=== PATIENT | female | born 1960 | race African-American/Black ===

== ENCOUNTER 2017-11-23 11:43 | Emergency (ER) | payer MEDICARE, OTHER ==
[~2017-11-23] VITALS: Ht 170.2 cm; Wt 89.4 kg
--- NOTE | 2017-11-23 12:10 | PHYS DOC ---
Past History Past Medical History: Asthma, CAD, Diabetes, Hypertension Smoking: Non-smoker Adult General Chief Complaint Chief Complaint: MECHANICAL FALL HPI HPI 57 year old female patient states she was getting out of her car and fell on ice on the driveway of her home and landed on her left site without head injury or loss of consciousness. Patient states she was not able to get up and one of the neighbor called 911 and they helped her to get up and she was able to walk but complaining of pain in left elbow and thoracic and lumbar spine and rated her pain 7/10 in elbow and 8/10 in her back a constant pain that getting force with movement. Patient denies focal neuro deficit, nausea and vomiting, headache. Patient is up-to-date with tetanus immunization. Review of Systems Review of Systems Constitutional: Denies fever or chills [] Eyes: Denies change in visual acuity, redness, or eye pain [] HENT: Denies nasal congestion or sore throat [] Respiratory: Denies cough or shortness of breath [] Cardiovascular: No additional information not addressed in HPI [] GI: Denies abdominal pain, nausea, vomiting, bloody stools or diarrhea [] : Denies dysuria or hematuria [] Musculoskeletal: Reports back pain and joint pain Integument: Denies rash or skin lesions [] Neurologic: Denies headache, focal weakness or sensory changes [] Endocrine: Denies polyuria or polydipsia [] All other systems were reviewed and found to be within normal limits, except as documented in this note. Current Medications Current Medications Current Medications Medications (Trade) Dose Ordered Sig/Xu Start Time Stop Time Status Last Admin Dose Admin Acetaminophen/ Hydrocodone Bitart (Lortab 5/325) 1 tab 1X ONCE 11/23/17 12:15 11/23/17 12:16 UNV Allergies Allergies Allergies Coded Allergies Type Severity Reaction Last Updated Verified Sulfa (Sulfonamide Antibiotics) Allergy Unknown 11/23/17 Yes nitrofurantoin Allergy Unknown 11/23/17 Yes sulfamethoxazole Allergy Unknown 11/23/17 Yes trimethoprim Allergy Unknown 11/23/17 Yes Physical Exam Physical Exam Constitutional: Well developed, well nourished, mild distress, non-toxic appearance. [] HENT: Normocephalic, atraumatic, bilateral external ears normal, oropharynx moist, no oral exudates, nose normal. [] Eyes: PERRLA, EOMI, conjunctiva normal, no discharge. [] Neck: Normal range of motion, no tenderness, supple, no stridor. [] Cardiovascular:Heart rate regular rhythm, no murmur [] Lungs & Thorax: Bilateral breath sounds clear to auscultation [] Abdomen: Bowel sounds normal, soft, no tenderness, no masses, no pulsatile masses. [] Skin: Warm, dry, no erythema, no rash. [] Back: No deformity or midline tenderness, limited range of motion of thoracic and lumbar spine because of pain Extremities: No deformity of left elbow and forearm, mild tenderness in proximal posterior side of left forearm, no neurovascular deficit Neurologic: Alert and oriented X 3, normal motor function, normal sensory function, no focal deficits noted. [] Psychologic: Affect normal, judgement normal, mood normal. [] EKG EKG [] Radiology/Procedures Radiology/Procedures [] [place] [address] IMAGING REPORT Signed PATIENT: ROWAN MONTOYA ACCOUNT: [id number] : 1960 LOCATION: ER AGE: 57 SEX: F EXAM [id number]; [id number] STATUS: REG ER ORD. PHYSICIAN: KARINA KEITA MD REASON: fall PROCEDURE: ELBOW LEFT 3V; LUMBAR SPINE 2-3V; THORACIC SPINE 3V Portable left elbow, 3 views, 11/23/2017: History: Fall, left elbow pain No fracture or dislocation is identified. There is no radiographic evidence of an elbow joint effusion. IMPRESSION: No significant left elbow abnormality is detected.. Thoracic spine, 3 views, 11/23/2017: History: Fall, back pain The thoracic vertebral heights are well-maintained. There is mild scattered marginal spurs. There is a slight left convexity upper thoracic scoliosis. No fracture or dislocation is identified. A surgical plate and screws is evident in the lower cervical spine. IMPRESSION: 1. Mild degenerative change. 2. No acute bony abnormality is detected. Portable lumbar spine, 3 views, 11/23/2017: History: Fall, back pain The lumbar vertebral heights and disc spaces are well-maintained. There are mild scattered marginal spurs. There are moderate degenerative changes involving scattered facet joints bilaterally. No fracture is identified. There is a slight anterolisthesis at L4-5 apparently due to facet joint arthropathy. Minimal aortic calcific plaquing is noted. IMPRESSION: 1. Mild to moderate scattered degenerative changes. 2. Slight anterolisthesis at L4-5 due to facet joint arthropathy. 3. No acute bony abnormality is detected. Course & Med Decision Making Course & Med Decision Making Pertinent Imaging studies reviewed. (See chart for details) Evaluation of patient in ER showed 57-year-old female patient with a fall and injury to left elbow and back. Patient had unremarkable physical exam except for mild limited range of motion because of pain. X-ray of left elbow and thoracic and lumbar spine was unremarkable. Patient treated with [place] and felt better. Plan discharge patient home with diagnosis of mechanical fall and injury to elbow. Patient completed without problem. I've spoken with the patient and/or caregivers. I've explained the patient's condition, diagnosis and treatment plan based on information available to me at this time. I've answered the patient's and/or caregivers questions and addressed any concerns. The patient and/or caregivers have a good understanding the patient's diagnosis, condition and treatment plan as can be expected at this point. Vital signs have been stabilized. The patient's condition is stable for discharge from the emergency department. The patient will pursue further outpatient evaluation with her primary care provider or other designated consulting physician as outlined in the discharge instructions. Patient and/or caregivers are agreeable to this plan of care and follow-up instructions have been explained in detail. The patient and/or caregivers have received these instructions in written format and expressed understanding of these discharge instructions. The patient and her caregivers are aware that if any significant change in condition or worsening of symptoms should prompt him to immediately return to this of the closest emergency department. If an emergent department is not readily available I would encourage him to call 911. [] Dragon Disclaimer Dragon Disclaimer This electronic medical record was generated, in whole or in part, using a voice recognition dictation system. Departure Departure: Impression: Primary Impression: Injury of left elbow Additional Impressions: Thoracic myofascial strain Lumbar strain Fall from slipping on ice Disposition: HOME, SELF-CARE (At 1308) Condition: IMPROVED Referrals: FATUMA PIERCE MD (PCP) Patient Instructions: Contusion, Lumbosacral Strain, Thoracic Strain Additional Instructions: Apply ice on the affected area Follow-up with your primary care physician in 3-5 days Return to ER if not getting better Scripts Hydrocodone Bit/Acetaminophen (NORCO 5-325 TABLET) 1 Each Tablet 1 TAB PO PRN Q6HRS Y for PAIN, #14 TAB 0 Refills Prov: KARINA KEITA MD 11/23/17 Problem Qualifiers KARINA KEITA MD Nov 23, 2017 12:10
[2017-11-23] MEDS ORDERED: HYDROcodone/APAP 5/325MG 1 TAB TABLET PO ONE (12:30)
--- NOTE | 2017-11-23 12:44 | RAD ---
Portable left elbow, 3 views, 11/23/2017: History: Fall, left elbow pain No fracture or dislocation is identified. There is no radiographic evidence of an elbow joint effusion. IMPRESSION: No significant left elbow abnormality is detected.. Thoracic spine, 3 views, 11/23/2017: History: Fall, back pain The thoracic vertebral heights are well-maintained. There is mild scattered marginal spurs. There is a slight left convexity upper thoracic scoliosis. No fracture or dislocation is identified. A surgical plate and screws is evident in the lower cervical spine. IMPRESSION: 1. Mild degenerative change. 2. No acute bony abnormality is detected. Portable lumbar spine, 3 views, 11/23/2017: History: Fall, back pain The lumbar vertebral heights and disc spaces are well-maintained. There are mild scattered marginal spurs. There are moderate degenerative changes involving scattered facet joints bilaterally. No fracture is identified. There is a slight anterolisthesis at L4-5 apparently due to facet joint arthropathy. Minimal aortic calcific plaquing is noted. IMPRESSION: 1. Mild to moderate scattered degenerative changes. 2. Slight anterolisthesis at L4-5 due to facet joint arthropathy. 3. No acute bony abnormality is detected.
[2017-11-23] MEDS ORDERED: HYDR-971 PO (13:09)
[2017-11-23 13:18] VITALS: BP 140/67
== END 2017-11-23 13:19 | disposition home or self-care (01) ==
LOC: ER 11:43
DX: S59.902A Unspecified injury of left elbow, initial encounter (principal); S29.012A Strain of muscle and tendon of back wall of thorax, initial encounter; S39.012A Strain of muscle, fascia and tendon of lower back, initial encounter; E11.9 Type 2 diabetes mellitus without complications; I10 Essential (primary) hypertension; I25.10 Atherosclerotic heart disease of native coronary artery without angina pectoris; J45.909 Unspecified asthma, uncomplicated; Z88.2 Allergy status to sulfonamides; Z88.1 Allergy status to other antibiotic agents; Z88.8 Allergy status to other drugs, medicaments and biological substances; W00.0XXA Fall on same level due to ice and snow, initial encounter; Y93.89 Activity, other specified; Y92.89 Other specified places as the place of occurrence of the external cause; Y99.8 Other external cause status
CPT/HCPCS: 72072; 72100; 73080; 99284

== ENCOUNTER → 2017-12-06 | Day surgery (SDC) | payer MEDICARE, OTHER ==
[2017-11-23 13:18] VITALS: BP 140/67
[~2017-12-06] MED LIST: ALBU8.5H8 INH; ALLO300T PO; BUPIVACAINE MPF 0.5% 30 ML VIAL. ONE; CRESTOR40 MG PO; GABA600T2 PO; GLIP10TA13 PO; HYDR-971 PO; INSU100C4 SQ; INSU100I13 SQ; IV RINGERS SOLUTION,LACTATED 1,000 ML IV SCH; LIDOCAINE 1% PF 30 ML VIAL. ONE; LORA10TA3 PO; LOSA100T6 PO; MIDAZOLAM HCL PF 2 MG/2 ML VIAL. ONE; RANI150T6 PO; TRIA1CAP3 PO
== END | disposition home or self-care (01) ==
LOC: SURG 08:07
PROVIDERS: ATTEND Anesthesiology Pain Medicine
DX: M47.816 Spondylosis without myelopathy or radiculopathy, lumbar region (principal); I10 Essential (primary) hypertension; E11.9 Type 2 diabetes mellitus without complications; J45.909 Unspecified asthma, uncomplicated; G47.33 Obstructive sleep apnea (adult) (pediatric); Z79.899 Other long term (current) drug therapy; Z98.890 Other specified postprocedural states; Z88.2 Allergy status to sulfonamides; Z88.8 Allergy status to other drugs, medicaments and biological substances; Z79.4 Long term (current) use of insulin
CPT/HCPCS: 64493; 64494; 82947; J2001; J2250; J3010; J3490; J7120; 99152

== ENCOUNTER 2018-01-03 07:33 | Inpatient (IN) | payer MEDICARE, OTHER ==
[~2018-01-03] VITALS: Ht 170.2 cm; Wt 93.0 kg
[~2018-01-03 07:33] MED LIST changes: -BUPIVACAINE MPF 0.5% 30 ML VIAL. ONE; -IV RINGERS SOLUTION,LACTATED 1,000 ML IV SCH; -LIDOCAINE 1% PF 30 ML VIAL. ONE; -MIDAZOLAM HCL PF 2 MG/2 ML VIAL. ONE
[2018-01-03] MEDS ORDERED: IPRATRPIUM/ALBUTEROL 0.5/2.5MG 3 ML NEBU. ONE (07:45)
[2018-01-03] MEDS ORDERED: MAGNESIUM SULFATE 1GM 100 ML IV ONE (08:00)
[2018-01-03] MEDS ORDERED: IV NORMAL SALINE 1,000ML 1,000 ML IV SCH ×2 (08:00→10:06)
--- NOTE | 2018-01-03 08:22 | EKG ---
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
[2018-01-03 08:26] LABS: BASO % 1 % (0-3); EOS # 0.4 x10^3/uL (0.0-0.7); EOS % 6 % (0-3); HEMATOCRIT 37.5 % (36.0-47.0); HEMOGLOBIN 12.3 g/dL (12.0-15.5); LYMPH # 2.1 x10^3/uL (1.0-4.8); LYMPH % 36 % (24-48); MEAN CORPUSCULAR HEMOGLOBIN 31 pg (25-35); MEAN CORPUSCULAR HGB CONC 33 g/dL (31-37); MEAN CORPUSCULAR VOLUME 94 fL (79-100); MONO # 0.7 x10^3/uL (0.0-1.1); MONO % 11 % (0-9); NEUT # 2.7 x10^3uL (1.8-7.7); NEUT % 46 % (31-73); PLATELET COUNT 239 x10^3/uL (140-400); RED BLOOD COUNT 4.01 x10^6/uL (3.50-5.40); RED CELL DISTRIBUTION WIDTH 15.1 % (11.5-14.5); WHITE BLOOD COUNT 5.8 x10^3/uL (4.0-11.0)
[2018-01-03] MEDS ORDERED: ALBUTEROL SULFATE 2.5 MG/3 ML NEBU. NEB ONE (08:30)
[2018-01-03] MEDS ORDERED: methylPREDNISolone SOD SUCC PF 125 MG/2 ML VIAL. IV ONE (08:30)
--- NOTE | 2018-01-03 08:34 | PHYS DOC ---
Past History Past Medical History: Asthma, CAD, Diabetes, Hypertension Past Surgical History: Other Smoking: Non-smoker Alcohol Use: None Drug Use: None Adult General Chief Complaint Chief Complaint: SHORTNESS OF BREATH HPI HPI Patient is a 57 year old female who presents with complaint shortness of breath. The patient states her symptoms started approximately 4-5 days ago. The patient states that she has been having coughing and wheezing. The patient went to see her primary care provider and was treated with amoxicillin, Tessalon Perles, and cough medication. Patient states that she does have history of chronic asthma. Patient denies any associated fevers. Patient states despite taking the medications her condition has been worsening over the past 1-2 days. Patient states she is very short of breath with minimal exertion and has been having quite a bit of wheezing. Patient denies chest pain, vomiting, or diarrhea. Review of Systems Review of Systems Constitutional: Denies fever or chills [] Eyes: Denies change in visual acuity, redness, or eye pain [] HENT: Denies nasal congestion or sore throat [] Respiratory: Cough, wheezing, shortness of breath[] Cardiovascular: Denies chest pain or edema[] GI: Denies abdominal pain, nausea, vomiting, bloody stools or diarrhea [] : Denies dysuria or hematuria [] Musculoskeletal: Denies back pain or joint pain [] Integument: Denies rash or skin lesions [] Neurologic: Denies headache, focal weakness or sensory changes [] All other systems were reviewed and found to be within normal limits, except as documented in this note. Current Medications Current Medications Current Medications Medications (Trade) Dose Ordered Sig/Xu Start Time Stop Time Status Last Admin Dose Admin Albuterol Sulfate (Ventolin) 5 mg 1X ONCE 01/03/18 08:30 01/03/18 08:31 Albuterol/ Ipratropium (Duoneb) 3 ml STK-MED ONCE 01/03/18 07:45 01/03/18 07:46 DC Magnesium Sulfate 100 ml @ 100 mls/hr 1X ONCE 01/03/18 08:00 01/03/18 08:59 01/03/18 08:22 100 MLS/HR Methylprednisolone Sodium Succinate (SOLU-Medrol 125MG VIAL) 125 mg 1X ONCE 01/03/18 08:30 01/03/18 08:31 01/03/18 08:22 125 MG Sodium Chloride 1,000 ml @ 1,000 mls/hr Q1H 01/03/18 08:00 01/03/18 08:59 01/03/18 08:22 1,000 MLS/HR Allergies Allergies Allergies Coded Allergies Type Severity Reaction Last Updated Verified Sulfa (Sulfonamide Antibiotics) Allergy Unknown 11/23/17 Yes nitrofurantoin Allergy Unknown 11/23/17 Yes sulfamethoxazole Allergy Unknown 11/23/17 Yes trimethoprim Allergy Unknown 11/23/17 Yes Physical Exam Physical Exam Constitutional: Alert, afebrile, appears in [id number] respiratory distress. [] HENT: Normocephalic, atraumatic, bilateral external ears normal, oropharynx moist, no oral exudates, nose normal. [] Eyes: PERRLA, EOMI, conjunctiva normal, no discharge. [] Neck: Normal range of motion, no tenderness, supple, no stridor. [] Cardiovascular:Heart rate regular rhythm, no murmur [] Lungs & Thorax: Moderately restricted air movement bilaterally, prolonged expiratory phase, expiratory wheezes bilaterally, no rales[] Abdomen: Bowel sounds normal, soft, no tenderness, no masses, no pulsatile masses. [] Skin: Warm, dry, no erythema, no rash. [] Back: No tenderness, no CVA tenderness. [] Extremities: No tenderness, no cyanosis, no clubbing, ROM intact, no edema. [] Neurologic: Alert and oriented X 3, normal motor function, normal sensory function, no focal deficits noted. [] Current Patient Data Vital Signs Vital Signs Date Time Temp Pulse Resp B/P (MAP) Pulse Ox O2 Delivery O2 Flow Rate FiO2 01/03/18 07:50 98 Room Air 01/03/18 07:49 97.8 86 22 Lab Results Laboratory Tests Test 01/03/18 08:14 White Blood Count 5.8 x10^3/uL (4.0-11.0) Red Blood Count 4.01 x10^6/uL (3.50-5.40) Hemoglobin 12.3 g/dL (12.0-15.5) Hematocrit 37.5 % (36.0-47.0) Mean Corpuscular Volume 94 fL (79-100) Mean Corpuscular Hemoglobin 31 pg (25-35) Mean Corpuscular Hemoglobin Concent 33 g/dL (31-37) Red Cell Distribution Width 15.1 % (11.5-14.5) H Platelet Count 239 x10^3/uL (140-400) Neutrophils (%) (Auto) 46 % (31-73) Lymphocytes (%) (Auto) 36 % (24-48) Monocytes (%) (Auto) 11 % (0-9) H Eosinophils (%) (Auto) 6 % (0-3) H Basophils (%) (Auto) 1 % (0-3) Neutrophils # (Auto) 2.7 x10^3uL (1.8-7.7) Lymphocytes # (Auto) 2.1 x10^3/uL (1.0-4.8) Monocytes # (Auto) 0.7 x10^3/uL (0.0-1.1) Eosinophils # (Auto) 0.4 x10^3/uL (0.0-0.7) Basophils # (Auto) 0.0 x10^3/uL (0.0-0.2) EKG EKG Interpreted by me: Heart rate 92, sinus rhythm, leftward axis, no acute ST/T- wave abnormalities present[] Radiology/Procedures Radiology/[place] [address] IMAGING REPORT Signed PATIENT: ROWAN MONTOYA ACCOUNT: [id number] : 1960 LOCATION: ER AGE: 57 SEX: F EXAM STATUS: REG ER ORD. PHYSICIAN: KATHY GALINDO MD REASON: cough, shortness of breath PROCEDURE: PORTABLE CHEST 1V PORTABLE CHEST 1V Clinical Indication: cough shortness of air Comparison: Thoracic spine radiographs 11/23/2017. Findings: The cardiomediastinal silhouette is normal. Lungs are clear. There is no pneumothorax. No pleural effusion is appreciated. No acute bone abnormality. Right humeral head suture anchors. Cervical spine fusion hardware partially seen. IMPRESSION: No acute cardiopulmonary process. Electronically signed by: Cesar Merritt MD (01/03/2018 8:51 AM) [id number] DICTATED AND SIGNED BY: CESAR MERRITT MD DATE: 01/03/18 0847 CC: KATHY GALINDO MD; FATUMA PIERCE MD ~ [] Course & Med Decision Making Course & Med Decision Making Pertinent Labs and Imaging studies reviewed. (See chart for details) Patient was given one unit doses of DuoNeb and 2 unit doses of albuterol as well as IV Solu-Medrol in the emergency department. On reevaluation, patient states that her symptoms slightly improved, however patient continues to have labored respirations. Given chronicity of symptoms as well as failure of outpatient treatment, the patient was offered admission to the hospital for further treatment which she accepted. I spoke with Dr. Solorio who accepted care patient in hospital. Dragon Disclaimer Dragon Disclaimer This electronic medical record was generated, in whole or in part, using a voice recognition dictation system. Departure Departure: Impression: Primary Impression: Asthma exacerbation Additional Impression: Hyperglycemia Disposition: 09 ADMITTED INPATIENT Admitting Physician: Goldy Solorio Condition: STABLE Referrals: FATUMA PIERCE MD (PCP) Problem Qualifiers Primary Impression: Asthma exacerbation Asthma severity: moderate Asthma persistence: persistent Qualified Codes: J45.41 - Moderate persistent asthma with (acute) exacerbation KATHY GALINDO MD Jan 03, 2018 08:34
--- NOTE | 2018-01-03 08:54 | RAD ---
PORTABLE CHEST 1V Clinical Indication: cough shortness of air Comparison: Thoracic spine radiographs 11/23/2017. Findings: The cardiomediastinal silhouette is normal. Lungs are clear. There is no pneumothorax. No pleural effusion is appreciated. No acute bone abnormality. Right humeral head suture anchors. Cervical spine fusion hardware partially seen. IMPRESSION: No acute cardiopulmonary process. Electronically signed by: Cesar Merritt MD (01/03/2018 8:51 AM) [id number]
[2018-01-03 09:11] LABS: ALBUMIN 3.1 g/dL (3.4-5.0); ALBUMIN/GLOBULIN RATIO 0.8 (1.0-1.7); CALCIUM 9.3 mg/dL (8.5-10.1); CREATININE 1.1 mg/dL (0.6-1.0); GFR 62.2; MAGNESIUM 1.7 mg/dL (1.8-2.4); POTASSIUM 3.8 mmol/L (3.5-5.1); TOTAL BILIRUBIN 0.2 mg/dL (0.2-1.0); TOTAL PROTEIN 7.1 g/dL (6.4-8.2)
[2018-01-03 09:55] VITALS: BP 141/82
[2018-01-03] MEDS ORDERED: ACETAMINOPHEN 325 MG TABLET PO PRN (10:15)
[2018-01-03] MEDS ORDERED: ONDANSETRON PF 4 MG/2 ML VIAL. IV PRN (10:15)
[2018-01-03] MEDS ORDERED: DICL100G18 TP (11:24)
[2018-01-03] MEDS ORDERED: SALM50DI IH (11:24)
[2018-01-03] MEDS ORDERED: AMLO5TAB2 PO (11:24)
[2018-01-03] MEDS ORDERED: ASPI-630 PO (11:24)
[2018-01-03] MEDS ORDERED: GLIP-112 PO (11:24)
[2018-01-03] MEDS ORDERED: POLY17PO5 PO (11:24)
[2018-01-03] MEDS ORDERED: DOCU100C28 PO (11:24)
[2018-01-03] MEDS ORDERED: INSULIN ASPART 300 UNITS/3 ML INSULN.PEN SQ SCH ×2 (11:30→17:45)
[2018-01-03] MEDS: IPRATRPIUM/ALBUTEROL 0.5/2.5MG 3 ML NEBU. NEB SCH ×3 (11:44→20:51)
[2018-01-03] MEDS ORDERED: ALBUTEROL SULFATE 8GM INHALER. INH PRN (11:45)
[2018-01-03] MEDS ORDERED: ALBUTEROL SULFATE 2.5 MG/3 ML NEBU. NEB PRN (12:45)
[2018-01-03] MEDS ORDERED: INSULIN DETEMIR 300 UNITS/3 ML INSULN.PEN. SQ SCH ×2 (13:00→21:00)
[2018-01-03] MEDS ORDERED: POLYETHYLENE GLYCOL 3350 17 GM PACKET. PO SCH (13:00)
[2018-01-03] MEDS ORDERED: FAMOTIDINE 20 MG TABLET PO PRN (13:00)
[2018-01-03] MEDS ORDERED: DICLOFENAC SODIUM 1% TOPICAL GEL 100GM TUBE. TP SCH (13:00)
[2018-01-03] MEDS ORDERED: CETIRIZINE HCL 10 MG TABLET PO PRN (13:00)
[2018-01-03] MEDS: ATORVASTATIN CALCIUM 20 MG TABLET PO SCH (13:00)
[2018-01-03] MEDS: methylPREDNISolone SOD SUCC PF 125 MG/2 ML VIAL. IV SCH ×3 (13:05→23:35)
[2018-01-03] MEDS: ASPIRIN 81 MG TAB.CHEW PO SCH (13:06)
[2018-01-03] MEDS: LOSARTAN 50 MG TABLET. PO SCH (13:07)
[2018-01-03] MEDS: GABAPENTIN 300 MG CAPSULE. PO SCH ×2 (13:09→21:09)
[2018-01-03] MEDS: amLODIPine BESYLATE 5 MG TABLET PO SCH (13:09)
[2018-01-03] MEDS: ALLOPURINOL 300 MG TABLET. PO SCH (13:10)
[2018-01-03] MEDS: TRIAMTERENE/HCTZ 37.5/25MG TABLET. PO SCH (13:17)
[2018-01-03] MEDS: INSULIN ASPART 300 UNITS/3 ML INSULN.PEN SQ SCH ×3 (16:30→17:55)
[2018-01-03] MEDS: ALBUTEROL SULFATE 2.5 MG/3 ML NEBU. NEB SCH ×2 (16:30→18:00)
[2018-01-03 16:36] VITALS: BP 138/81
--- NOTE | 2018-01-03 18:36 | HP ---
ADMIT DATE: 01/03/2018 HISTORY OF PRESENT ILLNESS: The patient is a 57-year-old -[place] female patient who came to the Emergency Room, complaining of shortness of breath, chest tightness. Her complaint started about 4 or 5 days ago. She stated that she has been having coughing and sneezing. She went to her primary care physician and was treated with amoxicillin, Tessalon Perles and cough medication without much improvement. She does have history of chronic asthma for which she has 2 inhalers that she has been occasionally using them and has not had any acute asthma exacerbation for a long time. The patient denied any fever; however, her despite taking all these medication, her condition has worsened over the last 1-2 days and was seen in the Emergency Room and was admitted for acute asthma exacerbation. In the Emergency Room, she was investigated extensively. Her lab work showed a normal white cell count of 5800. Her chest x-ray showed no pneumothorax, no pleural effusion, no acute bony abnormality. The cardiomediastinal silhouette is normal and lungs are clear. She was admitted to continue treatment with Solu-Medrol, nebulized treatment. PAST MEDICAL HISTORY: Significant for bronchial asthma, although she stated that has been mild and she used inhalers only occasionally. She has never required mechanical ventilation. She is known to have type 2 diabetes, hypertension, hyperlipidemia. She claims that she has coronary artery disease and has 2 myocardial infarction. She has history of gout, Zenker's diverticulum. PAST SURGICAL HISTORY: Significant for cervical spine fusion, bilateral rotator cuff tear repair, right knee arthroscopic surgery, plantar fasciitis, sinus surgery. She has also had an esophagogastroduodenoscopy and colonoscopy. ALLERGIES: SHE IS ALLERGIC TO SULFA, NITROFURANTOIN, SULFAMETHOXAZOLE, TRIMETHOPRIM. MEDICATIONS: She is currently on following medications: She is on loratadine 10 mg daily p.r.n., albuterol sulfate 1 puff every 4 hours, ____ Serevent Diskus 50 mcg inhalation twice a day, Crestor 40 mg daily, amlodipine besylate 5 mg once a day, losartan potassium 100 mg daily, aspirin 81 mg once a day, diclofenac sodium 100 grams gel applied topically 4 times a day for joint pain, gabapentin 600 mg twice a day, triamterene/hydrochlorothiazide 37.5/25 one tablet daily. She is on Colace 100 mg twice a day, polyethylene glycol 17 grams daily, ranitidine 150 mg twice a day. She is on NovoLog 40 units before meals and NovoLog 45 units before supper, Lantus 60 units twice a day. She is on glipizide 10 mg 3 times a day before meals and allopurinol 300 mg daily. FAMILY HISTORY: She has 1 younger brother who has diabetes. Her father at age of 70 because of myocardial infarction and CVA. He is known to have diabetes and hypertension. Her mother is still alive at age of 76 and has diabetes and hypertension. SOCIAL HISTORY: She is , has 3 daughters and 2 sons. She never smoked. She drinks alcohol occasionally. Does not use any illicit drugs. 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 REVIEW OF SYSTEMS: The patient denied any blurring of vision, cataract, glaucoma or macular degeneration. Denied any earache, tinnitus or sensorineural deafness. Denied any nosebleeds, stuffy nose, but did complain of stuffy nose. Denied any postnasal drip. Denied any sore throat, sore tongue, toothache, hoarseness of voice or difficulty swallowing. She did have what seems to be Zenker's diverticulum. Denied any nausea, vomiting, although occasionally vomits because of the severe cough bouts. No diarrhea or constipation. No hematemesis, melena or hematochezia. Denied any dysuria, frequency, hematuria. Denied any chest pain. Did complain of shortness of breath, chest tightness and wheezing and had cough, mostly dry with scanty whitish sputum. Denied any chills, rigors, or fever. Denied any dizziness, lightheadedness, or vertigo. PHYSICAL EXAMINATION: VITAL SIGNS: On arrival to the Emergency Room, her heart rate was 84, blood pressure 148/90, temperature was 97.8, respiratory rate 22 and oxygen saturation was 95% on room air. HEENT: Showed normocephalic, atraumatic. NECK: Supple. HEART: Showed normal first and second heart sounds with no gallop, rub or murmur. CHEST: Showed central trachea, equal bilateral expansion, air entry, vesicular sounds with very scattered rhonchi, more prominent posteriorly. I could not appreciate any crepitation. ABDOMEN: Distended, soft, nontender. No guarding or rigidity. No organomegaly. All hernial orifices intact. Bowel sounds normal. NEUROLOGIC: She was awake, alert, responding appropriately. All cranial nerves intact. EXTREMITIES: She moves extremities without difficulty. She ambulates without assistance or assistive devices. LABORATORY DATA: On arrival showed a white cell count of 5800, hemoglobin 12.3, hematocrit 37.5, MCV 94 and platelet count 239,000. Her serum sodium was 144, potassium 3.8, chloride 105, bicarbonate 28, anion gap of 11, BUN 21, creatinine 1.1, estimated GFR was 62 mL per minute. Her glucose was 201, calcium was 9.3, magnesium was 1.7. Total bilirubin, AST, ALT, alkaline phosphatase were normal. Her total protein was 7.1, albumin was 3.1. Her chest x-ray showed that the patient had the cardiomediastinal silhouette, is normal. Lungs are clear. There is no pneumothorax, no pleural effusion is appreciated. No acute bone abnormality. She has right humeral head suture anchors, cervical spine fusion hardware partially seen. IMPRESSION: In summary, this is a 57-year-old -[place] female patient who presented with acute severe asthma. She has multiple other medical problems including type 2 diabetes that seems to be very poorly controlled, hypertension, hyperlipidemia, gout, and Zenker's diverticulum. PLAN: My plan is to continue with IV Solu-Medrol, bronchodilator and I will add Singulair and Pulmicort. Her blood sugar obviously is going to be extremely high with the steroids. We will adjust her insulin as needed. I will repeat all her lab works tomorrow and obviously will taper her steroids once she started turning the corner. She does not seem to be in really severe asthma because she was able to lie flat and is not using her accessory muscles, or she was not in a tripod position. CLARICE MUSA MD DR: RAIMUNDO/jose e JOB#: [id number] / [id number]
[2018-01-03 19:35] VITALS: BP 156/76
[2018-01-03] MEDS: BUDESONIDE 0.5 MG/2 ML NEBU NEB SCH (20:51)
[2018-01-03] MEDS ORDERED: NON FORMULARY ITEM (Salmeterol Xinafoate (Serevent Diskus) 50 MCG) IH SCH (21:00)
[2018-01-03] MEDS: MONTELUKAST 10 MG TABLET. PO SCH (21:08)
[2018-01-03] MEDS: INSULIN DETEMIR 300 UNITS/3 ML INSULN.PEN. SQ SCH (21:17)
[2018-01-03 22:55] VITALS: BP 142/75
[2018-01-04 05:11] VITALS: BP 142/84
[2018-01-04] MEDS: IPRATRPIUM/ALBUTEROL 0.5/2.5MG 3 ML NEBU. NEB SCH ×2 (05:59→09:29)
[2018-01-04] MEDS: methylPREDNISolone SOD SUCC PF 125 MG/2 ML VIAL. IV SCH ×4 (05:59→23:50)
[2018-01-04 06:12] LABS: BASO % 0 % (0-3); EOS % 0 % (0-3); HEMATOCRIT 36.9 % (36.0-47.0); HEMOGLOBIN 12.1 g/dL (12.0-15.5); LYMPH # 1.8 x10^3/uL (1.0-4.8); LYMPH % 21 % (24-48); MEAN CORPUSCULAR HEMOGLOBIN 31 pg (25-35); MEAN CORPUSCULAR HGB CONC 33 g/dL (31-37); MEAN CORPUSCULAR VOLUME 95 fL (79-100); MONO # 0.2 x10^3/uL (0.0-1.1); MONO % 2 % (0-9); NEUT # 6.4 x10^3uL (1.8-7.7); NEUT % 77 % (31-73); PLATELET COUNT 263 x10^3/uL (140-400); RED CELL DISTRIBUTION WIDTH 15.7 % (11.5-14.5); WHITE BLOOD COUNT 8.4 x10^3/uL (4.0-11.0)
[2018-01-04 06:24] LABS: CALCIUM 9.9 mg/dL (8.5-10.1); CREATININE 1.3 mg/dL (0.6-1.0); GFR 51.3; POTASSIUM 4.5 mmol/L (3.5-5.1)
[2018-01-04] MEDS ORDERED: INSULIN ASPART 300 UNITS/3 ML INSULN.PEN SQ SCH ×2 (07:30)
[2018-01-04] MEDS: ASPIRIN 81 MG TAB.CHEW PO SCH (08:01)
[2018-01-04] MEDS: TRIAMTERENE/HCTZ 37.5/25MG TABLET. PO SCH (08:02)
[2018-01-04] MEDS: LOSARTAN 50 MG TABLET. PO SCH (08:02)
[2018-01-04] MEDS: GABAPENTIN 300 MG CAPSULE. PO SCH ×2 (08:02→20:55)
[2018-01-04] MEDS: ALLOPURINOL 300 MG TABLET. PO SCH (08:03)
[2018-01-04] MEDS: amLODIPine BESYLATE 5 MG TABLET PO SCH (08:03)
[2018-01-04] MEDS: INSULIN DETEMIR 300 UNITS/3 ML INSULN.PEN. SQ SCH ×2 (08:06→21:07)
[2018-01-04] MEDS: INSULIN ASPART 300 UNITS/3 ML INSULN.PEN SQ SCH ×4 (08:11→17:12)
[2018-01-04] MEDS: ATORVASTATIN CALCIUM 20 MG TABLET PO SCH (09:00)
[2018-01-04] MEDS ORDERED: POLYETHYLENE GLYCOL 3350 17 GM PACKET. PO PRN (09:00)
[2018-01-04] MEDS: BUDESONIDE 0.5 MG/2 ML NEBU NEB SCH ×2 (09:29→20:52)
[2018-01-04 10:34] VITALS: BP 152/77
[2018-01-04] MEDS: ALBUTEROL SULFATE 2.5 MG/3 ML NEBU. NEB SCH ×3 (12:00→20:51)
[2018-01-04] MEDS ORDERED: DICLOFENAC SODIUM 1% TOPICAL GEL 100GM TUBE. TP PRN (13:00)
[2018-01-04 15:11] VITALS: BP_SYST 129
[2018-01-04] MEDS ORDERED: DEXTROSE 50% 25 GM / 50ML DISP.SYRIN. IV PRN (16:00)
[2018-01-04] MEDS: metFORMIN XR 500 MG TAB.ER.24H PO SCH (16:54)
[2018-01-04 19:00] VITALS: BP 137/75
[2018-01-04] MEDS ORDERED: ACETAMINOPHEN 325 MG TABLET PO PRN (20:30)
[2018-01-04] MEDS: LACTOBACILLUS RHAMNOSUS GG 1 CAPSULE. PO SCH (20:55)
[2018-01-04] MEDS: AMOXICILLIN/K CLAV 875/125MG TABLET. PO SCH (20:55)
[2018-01-04] MEDS: MONTELUKAST 10 MG TABLET. PO SCH (20:55)
--- NOTE | 2018-01-05 00:17 | PN ---
DATE: 01/04/2018 SUBJECTIVE: The patient is resting slightly propped up in bed, in no apparent distress. She continued to complain of cough, chest tightness there. She is also expectorating yellowish phlegm. Denied any chest pain, denied any chills, rigors or fever. Her blood sugar obviously is not well controlled, although I increased her both NovoLog and Lantus insulin yesterday. PHYSICAL EXAMINATION: GENERAL: When I examined her today, she looked well and was clearly in no apparent respiratory distress, slightly pale. No jaundice, cyanosis, or thyromegaly. No jugular venous distension. No limb edema. VITAL SIGNS: Her heart rate was 96, blood pressure was 129/77, temperature was 97.9, respiratory rate 20, and oxygen saturation was 97% on room air. HEAD, EYES, EARS, NOSE AND THROAT: Showed normocephalic, atraumatic. NECK: Supple. HEART: Showed normal first and second heart sounds with no gallop, rub or murmur. CHEST: Clear to auscultation. No crepitation or rhonchi. She has more wheezing on the right side than the left. The patient is not using her accessory muscles. She is not tripod position. She is able to finish this is without difficulty. ABDOMEN: Distended, soft, nontender. No guarding or rigidity. No organomegaly. All hernial orifice intact. Bowel sounds normal. NEUROLOGIC: She is awake, alert, responding appropriately. All cranial nerves intact. She moves extremities without difficulty. She ambulates without assistance or assistive devices. Her intake was 3700, and no output was recorded. LABORATORY DATA: This morning showed her white cell count of 8400, hemoglobin 12, hematocrit 37, MCV 95 and platelet count 263,000. Her chemistry showed a serum sodium 137, potassium 4.5, chloride 101, bicarbonate 26, anion gap of 10, BUN 28, creatinine 1.3. Estimated GFR was 51 mL per minute. Her glucose was 416, calcium was 9.9. ASSESSMENT: 1. Acute severe asthma. 2. Type 2 diabetes mellitus, that is poorly controlled. 3. Hypertension. 4. Hyperlipidemia. 5. Gout. 6. Zenker diverticulum. PLAN: My plan is to continue with IV Solu-Medrol. Continue with bronchodilator. I will add antibiotics. She might be aspirating from her Zenker diverticulum. I will start her on Augmentin 875 mg twice a day with food. I will repeat her chest x-ray and evaluate her again tomorrow. I discontinued her glipizide and added metformin that was gradual be increased and also adjust her NovoLog and Lantus insulin further. CLARICE MUSA MD DR: RAIMUNDO/ojse e JOB#: [id number] / [id number]
[2018-01-05] MEDS: ALBUTEROL SULFATE 2.5 MG/3 ML NEBU. NEB SCH ×4 (05:19→21:01)
[2018-01-05] MEDS: methylPREDNISolone SOD SUCC PF 125 MG/2 ML VIAL. IV SCH ×4 (05:50→23:52)
[2018-01-05 05:55] VITALS: BP 156/84
[2018-01-05 06:05] LABS: BASO % 0 % (0-3); CALCIUM 9.7 mg/dL (8.5-10.1); CREATININE 1.5 mg/dL (0.6-1.0); EOS % 0 % (0-3); GFR 43.5; HEMATOCRIT 35.7 % (36.0-47.0); HEMOGLOBIN 11.6 g/dL (12.0-15.5); LYMPH % 13 % (24-48); MEAN CORPUSCULAR HEMOGLOBIN 31 pg (25-35); MEAN CORPUSCULAR HGB CONC 33 g/dL (31-37); MEAN CORPUSCULAR VOLUME 94 fL (79-100); MONO # 0.5 x10^3/uL (0.0-1.1); MONO % 4 % (0-9); NEUT # 12.5 x10^3uL (1.8-7.7); NEUT % 83 % (31-73); PLATELET COUNT 257 x10^3/uL (140-400); POTASSIUM 4.4 mmol/L (3.5-5.1)
[2018-01-05 06:37] LABS: % BANDS 1 % (0-9); % LYMPHS 13 % (24-48); % MONOS 4 % (0-10); % SEGS 82 % (35-66); ANISOCYTOSIS SLIGHT; PLT ESTIMATE ADEQUATE (ADEQUATE)
[2018-01-05 06:38] LABS: POLYCHROMASIA SLIGHT; TOXIC GRANULATION SLIGHT
[2018-01-05 06:39] LABS: OVALOCYTES OCC
[2018-01-05 06:40] LABS: TOXIC VACUOLATION SLIGHT
[2018-01-05] MEDS: INSULIN ASPART 300 UNITS/3 ML INSULN.PEN SQ SCH ×6 (08:39→17:29)
[2018-01-05] MEDS: GABAPENTIN 300 MG CAPSULE. PO SCH ×2 (08:43→21:18)
[2018-01-05] MEDS: AMOXICILLIN/K CLAV 875/125MG TABLET. PO SCH ×2 (08:43→21:18)
[2018-01-05] MEDS: metFORMIN XR 500 MG TAB.ER.24H PO SCH (08:43)
[2018-01-05] MEDS: ASPIRIN 81 MG TAB.CHEW PO SCH (08:43)
[2018-01-05] MEDS: LACTOBACILLUS RHAMNOSUS GG 1 CAPSULE. PO SCH ×2 (08:43→21:18)
[2018-01-05] MEDS: amLODIPine BESYLATE 5 MG TABLET PO SCH (08:44)
[2018-01-05] MEDS: DOCUSATE SODIUM 100 MG CAPSULE PO PRN ×2 (08:44→21:33)
[2018-01-05] MEDS: TRIAMTERENE/HCTZ 37.5/25MG TABLET. PO SCH (08:44)
[2018-01-05] MEDS: ALLOPURINOL 300 MG TABLET. PO SCH (08:44)
[2018-01-05] MEDS: LOSARTAN 50 MG TABLET. PO SCH (08:44)
[2018-01-05] MEDS: INSULIN DETEMIR 300 UNITS/3 ML INSULN.PEN. SQ SCH ×2 (08:52→21:21)
[2018-01-05] MEDS: ATORVASTATIN CALCIUM 20 MG TABLET PO SCH (08:54)
[2018-01-05 09:52] VITALS: BP 145/72
--- NOTE | 2018-01-05 10:27 | RAD ---
2 view CXR: Clinical indications: Worsening of shortness of air. Comparison: January 03, 2018 Findings: No acute lung infiltrate or pleural effusion or pulmonary edema or lung mass or pneumothorax is seen. The heart size, pulmonary vasculature, mediastinum and both beatriz are unremarkable. The osseous structures appear intact. Impression: No acute radiographic abnormality is seen.
[2018-01-05] MEDS: BUDESONIDE 0.5 MG/2 ML NEBU NEB SCH ×2 (11:42→21:01)
[2018-01-05 14:02] VITALS: BP 128/83
[2018-01-05 20:05] VITALS: BP 139/66
[2018-01-05] MEDS: MONTELUKAST 10 MG TABLET. PO SCH (21:18)
[2018-01-05 22:47] VITALS: BP 140/68
[2018-01-06 05:23] VITALS: BP 146/79
[2018-01-06] MEDS: ALBUTEROL SULFATE 2.5 MG/3 ML NEBU. NEB SCH ×2 (05:32→11:29)
[2018-01-06 05:51] LABS: CALCIUM 9.7 mg/dL (8.5-10.1); CREATININE 1.4 mg/dL (0.6-1.0); GFR 47.1; POTASSIUM 4.4 mmol/L (3.5-5.1)
[2018-01-06] MEDS: methylPREDNISolone SOD SUCC PF 125 MG/2 ML VIAL. IV SCH ×2 (05:53→12:14)
[2018-01-06] MEDS: INSULIN ASPART 300 UNITS/3 ML INSULN.PEN SQ SCH ×4 (08:23→12:20)
--- NOTE | 2018-01-06 09:15 | PN ---
DATE: 01/05/2018 SUBJECTIVE: The patient is resting slightly propped up in bed, in no apparent distress. She continued to complain of cough, shortness of breath, chest tightness and wheezing, has been up, but continued to feel short winded, continued to have cough with yellowish sputum. PHYSICAL EXAMINATION: GENERAL: When I examined her today, she looked slightly pale, but no jaundice, cyanosis, or thyromegaly. No jugular venous distension. No limb edema. VITAL SIGNS: Her heart rate was 82, blood pressure 145/72, temperature was 97.9, respiratory rate 20, and oxygen saturation was 97% on room air. HEAD, EYES, EARS, NOSE AND THROAT: Showed normocephalic, atraumatic. NECK: Supple. HEART: Showed normal first and second heart sounds with no gallop, rub or murmur. CHEST: Clear to auscultation. No crepitation or rhonchi. ABDOMEN: Distended, soft, nontender. No guarding or rigidity. No organomegaly. Hernial orifice intact. Bowel sounds normal. NEUROLOGIC: She is awake, alert, responding appropriately. All cranial nerves intact. She moves extremities without difficulty. She ambulates without assistance or assistive devices. Her intake over the last 24 hours was 1500, no output was recorded. LABORATORY DATA: White cell count 15,000, hemoglobin 11, hematocrit 35, MCV 94 and platelet count of 257,000. Her chemistry showed a serum sodium 136, potassium 4.4, chloride 101, bicarbonate 24, anion gap of 11, BUN 39, creatinine was 1.5, glucose was 425. ASSESSMENT: 1. Acute severe asthma. 2. Acute kidney injury. Creatinine rising from 1.1-1.5. Other medical problems include hypertension, poorly controlled type 2 diabetes, hyperlipidemia, gout, and Zenker diverticulum. PLAN: My plan is to discontinue losartan, hydrochlorothiazide and triamterene. I would also hold the metformin. Repeat her lab works tomorrow and decide further management accordingly. CLARICE MUSA MD DR: RAIMUNDO/jose e JOB#: [id number] / [id number]
[2018-01-06] MEDS: amLODIPine BESYLATE 5 MG TABLET PO SCH (09:18)
[2018-01-06] MEDS: GABAPENTIN 300 MG CAPSULE. PO SCH (09:18)
[2018-01-06] MEDS: AMOXICILLIN/K CLAV 875/125MG TABLET. PO SCH (09:18)
[2018-01-06] MEDS: ALLOPURINOL 300 MG TABLET. PO SCH (09:18)
[2018-01-06] MEDS: LACTOBACILLUS RHAMNOSUS GG 1 CAPSULE. PO SCH (09:18)
[2018-01-06] MEDS: DOCUSATE SODIUM 100 MG CAPSULE PO PRN (09:18)
[2018-01-06] MEDS: ASPIRIN 81 MG TAB.CHEW PO SCH (09:18)
[2018-01-06] MEDS: INSULIN DETEMIR 300 UNITS/3 ML INSULN.PEN. SQ SCH (09:28)
[2018-01-06] MEDS: BUDESONIDE 0.5 MG/2 ML NEBU NEB SCH (11:29)
[2018-01-06 11:55] VITALS: BP 154/74
--- NOTE | 2018-01-06 20:11 | DS ---
DATE OF DISCHARGE: 01/06/2018 HISTORY OF PRESENT ILLNESS: This is a 57-year-old female patient who was admitted to the Emergency Room to [facility] with a complaint of shortness of breath, chest tightness, has been going on for 4-5 days. She stated that she has been having coughing and sneezing. She went to her primary care physician, was treated with amoxicillin, Tessalon Perles and cough medication without much improvement. She does have history of chronic asthma for which she has 2 inhalers. She has been using them occasionally and has not had any acute asthma exacerbation for a long time. The patient denied any fever; however, despite all her medication, her condition has worsened and was admitted with acute asthma exacerbation. Her lab work initially showed a normal white cell count. X-ray showed no pneumothorax and no pleural effusion or infiltrate. We did start her on Solu-Medrol, nebulized treatment. I added actually Augmentin as she has not really been improving, and despite all the treatment, her kidney function also started to deteriorate and creatinine is going up from a baseline of 1.1 up to 1.5. Given that she continued to have marked chest tightness, wheezing with deterioration of kidney function, I am concerned about some form of pulmonary-renal syndrome like Churg-Lennox syndrome or Goodpasture syndrome or Ellen granulomatosis, and therefore, a decision was made to transfer her to [facility] ICU to consult the sterilization tech as well as the slinger sequins. PHYSICAL EXAMINATION: GENERAL: When I saw her this afternoon, she was sitting propped up in bed, in no apparent distress. She was not using her accessory muscles. Noted that she used a tripod position; however, she clearly continued to have marked diffuse chest tightness and wheezing. VITAL SIGNS: Her heart rate was 78, blood pressure 146/79, temperature was 97.6, respiratory rate 20, and oxygen saturation was 93% on room air. HEAD, EYES, EARS, NOSE AND THROAT: Showed normocephalic, atraumatic. NECK: Supple. HEART: Showed normal first and second heart sounds. No gallop, rub or murmur. CHEST: Clear to auscultation. No crepitation or rhonchi. ABDOMEN: Distended, soft, nontender. NEUROLOGIC: She is awake, alert, responding appropriately. All cranial nerves intact. She moves extremities without difficulty. She ambulates without assistance or assistive devices. Her intake was 2300, no output was recorded. DIAGNOSTIC STUDIES: Her lab work as of this morning showed a serum sodium 136, potassium 4.4, chloride 100, bicarbonate 26, anion gap of 10, BUN 47, creatinine 1.4, estimated GFR was 47, blood glucose was 416 and calcium was 9.4. Her white cell count was 15,000, hemoglobin 11, hematocrit 36, MCV 94 and platelet count of 257,000. Her chest x-ray showed that there are no lung infiltrate or pleural effusion, no pulmonary edema or lung mass or pneumothorax seen. The heart size, pulmonary vasculature, mediastinum and both beatriz are unremarkable. The osseous structures appear intact. DISCHARGE MEDICATIONS: The patient will be transferred to [facility] ICU to continue with lactobacillus rhamnosus 1 capsule twice a day, Augmentin 875 mg/125 twice a day, Tylenol 650 mg once a day. She is on Levemir insulin 65 units twice a day and NovoLog insulin 45 units 3 times a day before meals, albuterol sulfate 2.5 mg every 2 hours, Singulair 10 mg at bedtime, Pulmicort 0.5 mg twice a day, insulin aspart 45 units 3 times a day, famotidine 20 mg twice a day, cetirizine 10 mg once a day, gabapentin 600 mg 3 times a day, aspirin 81 mg once a day, allopurinol 300 mg twice a day, methylprednisolone 60 mg IV q. 6 hourly, Colace 100 mg twice a day. ASSESSMENT: 1. Acute severe asthma. Continue patient with marked chest tightness and wheezing. 2. Acute kidney injury with a question of possible pulmonary-renal syndrome. I did discontinue her losartan and Dyazide. 3. Other medical problems include poorly controlled type 2 diabetes, hypertension, hyperlipidemia, coronary artery disease, and she has a history of gout and Zenker diverticulum. CLARICE MUSA MD DR: RAIMUNDO/jose e JOB#: [id number] / [id number]
== END 2018-01-06 15:08 | disposition short-term general hospital (02) | DRG 546 ==
LOC: ER 07:33 → 1 SOUTH 09:34
PROVIDERS: ADMIT Internal Medicine; ATTEND Internal Medicine
DX: M31.0 Hypersensitivity angiitis (principal); J45.901 Unspecified asthma with (acute) exacerbation; N17.9 Acute kidney failure, unspecified; E11.65 Type 2 diabetes mellitus with hyperglycemia; K22.5 Diverticulum of esophagus, acquired; E78.5 Hyperlipidemia, unspecified; I10 Essential (primary) hypertension; I25.10 Atherosclerotic heart disease of native coronary artery without angina pectoris; M10.9 Gout, unspecified; Z82.3 Family history of stroke; Z82.49 Family history of ischemic heart disease and other diseases of the circulatory system; Z98.1 Arthrodesis status; Z83.3 Family history of diabetes mellitus; Z88.1 Allergy status to other antibiotic agents; Z88.2 Allergy status to sulfonamides; Z88.8 Allergy status to other drugs, medicaments and biological substances
CPT/HCPCS: 36415; 71045; 71046; 80048; 80053; 82553; 82947; 83735; 84484; 85007; 85025; 93005; 94640; 96360; 96361; 96374; J1815; J2930; J3475; J7613; J7620; J7626; 99285-25; J7030

== ENCOUNTER → 2018-02-14 | Outpatient (CLI) | payer MEDICARE, OTHER ==
[~2018-02-14] MED LIST changes: +AMLO5TAB2 PO; +ASPI-630 PO; +BUPIVACAINE MPF 0.5% 30 ML VIAL. ONE; +DICL100G18 TP; +DOCU100C28 PO; +GLIP-112 PO; +IV RINGERS SOLUTION,LACTATED 1,000 ML IV SCH; +LIDOCAINE 1% PF 30 ML VIAL. ONE; +MIDAZOLAM HCL PF 2 MG/2 ML VIAL. ONE; +POLY17PO5 PO; +RANI150T21 PO; -RANI150T6 PO; +SALM50DI IH
== END ==
LOC: SURG 08:53
PROVIDERS: ATTEND Anesthesiology Pain Medicine
DX: M47.816 Spondylosis without myelopathy or radiculopathy, lumbar region (principal); J45.909 Unspecified asthma, uncomplicated; Z87.39 Personal history of other diseases of the musculoskeletal system and connective tissue; I10 Essential (primary) hypertension; E11.9 Type 2 diabetes mellitus without complications; Z88.1 Allergy status to other antibiotic agents; Z88.8 Allergy status to other drugs, medicaments and biological substances
CPT/HCPCS: 64493; 64494; J2001; J2250; J3010; J3490; J7120; 99152